=== PATIENT | male | born 1970 | race Two or more races ===

== ENCOUNTER 2019-01-02 00:45 | Emergency (ER) | payer SELFPAY ==
[~2019-01-02] VITALS: Ht 170.2 cm; Wt 73.0 kg
== END 2019-01-02 01:00 | disposition left against medical advice (07) ==
LOC: ER 00:49
DX: Z02.89 Encounter for other administrative examinations (principal); Z53.21 Procedure and treatment not carried out due to patient leaving prior to being seen by health care provider